=== PATIENT | female | born 1940 | race Caucasian/White ===

== ENCOUNTER 2017-01-11 11:12 | Emergency (ER) | payer MEDICARE, BC ==
[2017-01-11 12:26] LABS: BASOPHILS 0 % (0-2); EOSINOPHILS 0 % (0-7); HEMATOCRIT 36.1 % (36.0-48.0); HEMOGLOBIN 12.2 g/dL (12-16); LYMPHOCYTES 39.2 % (15-50); MCH 28.9 pg (26.0-34.0); MCHC 33.8 g/dL (31.0-37.0); MCV 85.5 fL (80.0-100.0); MEAN PLATELET VOLUME 10.2 fL (7.4-10.4); MONOCYTES 6.5 % (2-11); NEUTROPHILS 53.3 % (40-80); PLATELET COUNT 200 10x3/uL (130-400); RBC 4.22 10x6/uL (4.00-5.40); RDW 13.9 % (11.5-14.5)
[2017-01-11 12:34] LABS: ALBUMIN 3.5 g/dL (3.4-5.0); ALKALINE PHOSPHATASE 87 U/L (46-116); ALT (SGPT) 19 U/L (10-68); BILIRUBIN - TOTAL 0.39 mg/dL (0.2-1.3); CALC OSMOLALITY 260 mosm/kg (275-300); CALCIUM 9.9 mg/dL (8.5-10.1); CARBON DIOXIDE 28.2 mmol/L (21.0-32.0); CHLORIDE - SERUM 95 mmol/L (98-107); CREATININE - SERUM 0.6 mg/dL (0.6-1.3); GLUCOSE 101 mg/dL (74-106); POTASSIUM - SERUM 3.7 mmol/L (3.5-5.1); PROTEIN - SERUM 6.4 g/dL (6.4-8.2); SODIUM 130 mmol/L (136-145); UREA NITROGEN 12 mg/dL (7-18); eGFR NON AFRICAN AMERICAN > 90 mL/min (90-120)
== END 2017-01-11 14:31 | disposition home or self-care (01) ==
LOC: D.ER 11:12
PROVIDERS: Physician Assistant
DX: E87.1 Hypo-osmolality and hyponatremia (principal); R11.0 Nausea; G82.20 Paraplegia, unspecified; I10 Essential (primary) hypertension